=== PATIENT | male | born 1975 | race Caucasian/White ===

== ENCOUNTER 2017-06-17 13:59 | Emergency (ER) | payer MEDICARE ==
[2017-06-17] MEDS ORDERED: Sodium Chloride 0.9% 10 ML Syringe FLUSH PRN (14:37)
[2017-06-17] MEDS ORDERED: Sodium Chloride 0.9% 1,000 ML IV ONE (14:38)
[2017-06-17] MEDS ORDERED: Aspirin 81 MG Tab.Chew PO ONE (14:38)
[2017-06-17] MEDS ORDERED: LORazepam 2 MG/ML MDV IVPUSH ONE (14:39)
--- NOTE | 2017-06-17 14:42 | EDM.PDOC ---
ED HPI GENERAL MEDICAL PROBLEM - General Chief Complaint: Chest Pain Stated Complaint: CHEST PAIN Time Seen by Provider: 06/17/17 14:16 Source of Information: Reports: Patient History Limitations: Reports: No Limitations - History of Present Illness INITIAL COMMENTS - FREE TEXT/NARRATIVE: Patient is a 41-year-old male who presents to the ED complaining of heart racing off and on for the past 1-2 weeks. States Thursday evening while going to sleep his heart was pounding out of his chest. He states he was to the point where he almost called 911. He became short of breath with mild confusion. States he developed some mild chest discomfort during these episodes. 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 He states their has been more stress recently at work. [place] [facility] [place] has intentions of going home for 2 weeks tomorrow. normally works 1-2 months and then goes home for 5 weeks. He states that he stays in his truck most nights and surprisingly eats a okay diet. He does admit to chronic alcohol use. Most evenings drinks approximately half pint of whiskey and 12 x 12 ounce beers when he is off of work. [facility] he has been drinking pretty heavily for the past 4-5 days. [facility] he is a functional alcoholic and has not undergone treatment before. He has no history of DTs or seizures with detoxing. Currently the patient has no chest pain, palpitations, shortness of breath, nausea/vomiting, dizziness, pain radiating to his neck/ back/arms, no PND, no orthopnea, no claudication noted. He does have a past medical history of hypertension, hypercholesterolemia, and smoking pack and a half every day. In addition he has a family history 1st degree relative dadwith multiple MIs and strokes. Patient does not have any documented coronary disease. He is not a diabetic. 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 Gastrointestinal History: Reports: Other (See Below) Other Gastrointestinal History: acid reflux - Past Surgical History GI Surgical History: Reports: Appendectomy Social & Family History - Tobacco Use Smoking Status *Q: Current Every Day Smoker Years of Tobacco use: 22 Packs/Tins Daily: 1.5 - Caffeine Use Caffeine Use: Reports: Coffee, Energy Drinks - Recreational Drug Use Recreational Drug Use: No ED ROS GENERAL - Review of Systems Review Of Systems: See Below Constitutional: Denies: Fever, Decreased Appetite HEENT: Reports: No Symptoms Respiratory: Reports: Shortness of Breath, Cough (Chronic smoker's cough). Denies: Pleuritic Chest Pain, Sputum Cardiovascular: Reports: Dyspnea on Exertion, Palpitations. Denies: Chest Pain , Lightheadedness, Syncope GI/Abdominal: Reports: No Symptoms : Reports: No Symptoms Musculoskeletal: Reports: No Symptoms Skin: Reports: No Symptoms Neurological: Reports: Dizziness (At times). Denies: Confusion, Headache, Numbness, Tingling, Weakness Psychiatric: Reports: Anxiety, Cravings (Alcohol). Denies: Depression, Hallucinations, Homicidal Ideation, Suicidal Ideation ED EXAM, GENERAL - Physical Exam Exam: See Below Exam Limited By: No Limitations General Appearance: Alert, WD/WN, Anxious Eye Exam: Bilateral Eye: EOMI, PERRL Ears: Hearing Grossly Normal Nose: Normal Inspection Throat/Mouth: Normal Voice, No Airway Compromise Neck: Normal Inspection, Supple Respiratory/Chest: No Respiratory Distress, Lungs Clear, Normal Breath Sounds, No Accessory Muscle Use, Chest Non-Tender Cardiovascular: Normal Peripheral Pulses, Regular Rate, Rhythm, No Murmur Peripheral Pulses: 4+: Radial (L), Radial (R) GI/Abdominal: Normal Bowel Sounds, Soft, Non-Tender, No Organomegaly, No Distention Extremities: Normal Inspection, Non-Tender, No Pedal Edema Neurological: Alert, Oriented, CN II-XII Intact, Normal Cognition, No Motor/ Sensory Deficits Psychiatric: Normal Affect, Anxious Skin Exam: Warm, Dry, Intact, Normal Color, No Rash Course - Vital Signs Last Recorded V/S: Last Vital Signs Temp 97.5 F 06/17/17 14:09 Pulse 85 06/17/17 14:09 Resp 14 06/17/17 14:09 BP 172/106 H 06/17/17 14:09 Pulse Ox 97 06/17/17 14:09 - Orders/Labs/Meds Orders: Active Orders 24 hr Category Date Time Status EKG Documentation Completion [RC] ASDIRECTED Care 06/17/17 14:11 Active Holter Monitor 48 Hours [RC] .PRN Care 06/17/17 16:29 Inactive Peripheral IV Care [RC] . DIRECTED Care 06/17/17 14:37 Active Peripheral IV Insertion Adult [OM.PC] Stat Oth 06/17/17 14:37 Ordered EKG 12 Lead [EK] Stat Ther 06/17/17 14:11 Ordered Labs: Laboratory Tests 06/17/17 06/17/17 06/17/17 Range/Units 14:20 14:20 14:20 WBC 7.31 (4.23-9.07) K/mm3 RBC 5.54 (4.63-6.08) M/mm3 Hgb 17.2 (13.7-17.5) gm/L Hct 49.8 (40.1-51.0) % MCV 89.9 (79.0-92.2) fl MCH 31.0 (25.7-32.2) pg MCHC 34.5 (32.2-35.5) g/dl RDW Std Deviation 43.2 (35.1-43.9) fL Plt Count 274 (163-337) K/mm3 MPV 9.2 L (9.4-12.3) fl Neut % (Auto) 62.6 (34.0-67.9) % Lymph % (Auto) 21.3 L (21.8-53.1) % Glasscock % (Auto) 13.0 H (5.3-12.2) % Eos % (Auto) 1.9 (0.8-7.0) Baso % (Auto) 0.8 (0.1-1.2) % Neut # (Auto) 4.57 (1.78-5.38) K/mm3 Lymph # (Auto) 1.56 (1.32-3.57) K/mm3 Glasscock # (Auto) 0.95 H (0.30-0.82) K/mm3 Eos # (Auto) 0.14 (0.04-0.54) K/mm3 Baso # (Auto) 0.06 (0.01-0.08) K/mm3 PT 10.8 (8.0-13.0) SECONDS INR 0.99 APTT (22-36) SECONDS Sodium 138 (136-145) mEq/L Potassium 3.6 (3.5-5.1) mEq/L Chloride 103 (98-107) mEq/L Carbon Dioxide 27 (21-32) mEq/L Anion Gap 11.6 (5-15) BUN 10 (7-18) mg/dL Creatinine 0.9 (0.7-1.3) mg/dL Est Cr Clr Drug Dosing 112.65 mL/min Estimated GFR (MDRD) > 60 (>60) mL/min BUN/Creatinine Ratio 11.1 L (14-18) Glucose 106 (74-106) mg/dL Calcium 9.9 (8.5-10.1) mg/dL Magnesium 1.7 L (1.8-2.4) mg/dl Total Bilirubin 0.5 (0.2-1.0) mg/dL AST 36 (15-37) U/L ALT 46 (16-63) U/L Alkaline Phosphatase 80 (46-116) U/L Troponin I < 0.017 (0.00-0.056) ng/mL Total Protein 8.2 (6.4-8.2) g/dl Albumin 4.3 (3.4-5.0) g/dl Globulin 3.9 gm/dL Albumin/Globulin Ratio 1.1 (1-2) TSH 3rd Generation 2.561 (0.358-3.74) uIU/mL Urine Color (Yellow) Urine Appearance (Clear) Urine pH (5.0-8.0) Ur Specific Towner (1.005-1.030) Urine Protein (Negative) Urine Glucose (UA) (Negative) Urine Ketones (Negative) Urine Occult Blood (Negative) Urine Nitrite (Negative) Urine Bilirubin (Negative) Urine Urobilinogen (0.2-1.0) Ur Leukocyte Esterase (Negative) Urine RBC (0-5) /hpf Urine WBC (0-5) /hpf Ur Epithelial Cells (0-5) /hpf Urine Bacteria (FEW) /hpf Urine Mucus (FEW) /hpf Urine Opiates Screen (NEGATIVE) Ur Buprenorphine Scrn (NEGATIVE) Ur Oxycodone Screen (NEGATIVE) Urine Methadone Screen (NEGATIVE) Ur Propoxyphene Screen (NEGATIVE) Ur Barbiturates Screen (NEGATIVE) Ur Tricyclics Screen (NEGATIVE) Ur Phencyclidine Scrn (NEGATIVE) Ur Amphetamine Screen (NEGATIVE) U Methamphetamines Scrn (NEGATIVE) U Benzodiazepines Scrn (NEGATIVE) U Cocaine Metab Screen (NEGATIVE) U Marijuana (THC) Screen (NEGATIVE) Ethyl Alcohol 0.00 (0.00) gm% 06/17/17 06/17/17 06/17/17 Range/Units 14:20 15:10 15:10 WBC (4.23-9.07) K/mm3 RBC (4.63-6.08) M/mm3 Hgb (13.7-17.5) gm/L Hct (40.1-51.0) % MCV (79.0-92.2) fl MCH (25.7-32.2) pg MCHC (32.2-35.5) g/dl RDW Std Deviation (35.1-43.9) fL Plt Count (163-337) K/mm3 MPV (9.4-12.3) fl Neut % (Auto) (34.0-67.9) % Lymph % (Auto) (21.8-53.1) % Glasscock % (Auto) (5.3-12.2) % Eos % (Auto) (0.8-7.0) Baso % (Auto) (0.1-1.2) % Neut # (Auto) (1.78-5.38) K/mm3 Lymph # (Auto) (1.32-3.57) K/mm3 Glasscock # (Auto) (0.30-0.82) K/mm3 Eos # (Auto) (0.04-0.54) K/mm3 Baso # (Auto) (0.01-0.08) K/mm3 PT (8.0-13.0) SECONDS INR APTT 25 (22-36) SECONDS Sodium (136-145) mEq/L Potassium (3.5-5.1) mEq/L Chloride (98-107) mEq/L Carbon Dioxide (21-32) mEq/L Anion Gap (5-15) BUN (7-18) mg/dL Creatinine (0.7-1.3) mg/dL Est Cr Clr Drug Dosing mL/min Estimated GFR (MDRD) (>60) mL/min BUN/Creatinine Ratio (14-18) Glucose (74-106) mg/dL Calcium (8.5-10.1) mg/dL Magnesium (1.8-2.4) mg/dl Total Bilirubin (0.2-1.0) mg/dL AST (15-37) U/L ALT (16-63) U/L Alkaline Phosphatase (46-116) U/L Troponin I (0.00-0.056) ng/mL Total Protein (6.4-8.2) g/dl Albumin (3.4-5.0) g/dl Globulin gm/dL Albumin/Globulin Ratio (1-2) TSH 3rd Generation (0.358-3.74) uIU/mL Urine Color Yellow (Yellow) Urine Appearance Clear (Clear) Urine pH 8.5 H (5.0-8.0) Ur Specific Towner 1.020 (1.005-1.030) Urine Protein 2+ H (Negative) Urine Glucose (UA) Negative (Negative) Urine Ketones Negative (Negative) Urine Occult Blood Negative (Negative) Urine Nitrite Negative (Negative) Urine Bilirubin Negative (Negative) Urine Urobilinogen 1.0 (0.2-1.0) Ur Leukocyte Esterase Negative (Negative) Urine RBC 0-5 (0-5) /hpf Urine WBC 0-5 (0-5) /hpf Ur Epithelial Cells 0-5 (0-5) /hpf Urine Bacteria Not seen (FEW) /hpf Urine Mucus Not seen (FEW) /hpf Urine Opiates Screen Negative (NEGATIVE) Ur Buprenorphine Scrn Negative (NEGATIVE) Ur Oxycodone Screen Negative (NEGATIVE) Urine Methadone Screen Negative (NEGATIVE) Ur Propoxyphene Screen Negative (NEGATIVE) Ur Barbiturates Screen Negative (NEGATIVE) Ur Tricyclics Screen Negative (NEGATIVE) Ur Phencyclidine Scrn Negative (NEGATIVE) Ur Amphetamine Screen Negative (NEGATIVE) U Methamphetamines Scrn Negative (NEGATIVE) U Benzodiazepines Scrn Negative (NEGATIVE) U Cocaine Metab Screen Negative (NEGATIVE) U Marijuana (THC) Screen Presumptive positive H (NEGATIVE) Ethyl Alcohol (0.00) gm% 06/17/17 Range/Units 17:20 WBC (4.23-9.07) K/mm3 RBC (4.63-6.08) M/mm3 Hgb (13.7-17.5) gm/L Hct (40.1-51.0) % MCV (79.0-92.2) fl MCH (25.7-32.2) pg MCHC (32.2-35.5) g/dl RDW Std Deviation (35.1-43.9) fL Plt Count (163-337) K/mm3 MPV (9.4-12.3) fl Neut % (Auto) (34.0-67.9) % Lymph % (Auto) (21.8-53.1) % Glasscock % (Auto) (5.3-12.2) % Eos % (Auto) (0.8-7.0) Baso % (Auto) (0.1-1.2) % Neut # (Auto) (1.78-5.38) K/mm3 Lymph # (Auto) (1.32-3.57) K/mm3 Glasscock # (Auto) (0.30-0.82) K/mm3 Eos # (Auto) (0.04-0.54) K/mm3 Baso # (Auto) (0.01-0.08) K/mm3 PT (8.0-13.0) SECONDS INR APTT (22-36) SECONDS Sodium (136-145) mEq/L Potassium (3.5-5.1) mEq/L Chloride (98-107) mEq/L Carbon Dioxide (21-32) mEq/L Anion Gap (5-15) BUN (7-18) mg/dL Creatinine (0.7-1.3) mg/dL Est Cr Clr Drug Dosing mL/min Estimated GFR (MDRD) (>60) mL/min BUN/Creatinine Ratio (14-18) Glucose (74-106) mg/dL Calcium (8.5-10.1) mg/dL Magnesium (1.8-2.4) mg/dl Total Bilirubin (0.2-1.0) mg/dL AST (15-37) U/L ALT (16-63) U/L Alkaline Phosphatase (46-116) U/L Troponin I < 0.017 (0.00-0.056) ng/mL Total Protein (6.4-8.2) g/dl Albumin (3.4-5.0) g/dl Globulin gm/dL Albumin/Globulin Ratio (1-2) TSH 3rd Generation (0.358-3.74) uIU/mL Urine Color (Yellow) Urine Appearance (Clear) Urine pH (5.0-8.0) Ur Specific Towner (1.005-1.030) Urine Protein (Negative) Urine Glucose (UA) (Negative) Urine Ketones (Negative) Urine Occult Blood (Negative) Urine Nitrite (Negative) Urine Bilirubin (Negative) Urine Urobilinogen (0.2-1.0) Ur Leukocyte Esterase (Negative) Urine RBC (0-5) /hpf Urine WBC (0-5) /hpf Ur Epithelial Cells (0-5) /hpf Urine Bacteria (FEW) /hpf Urine Mucus (FEW) /hpf Urine Opiates Screen (NEGATIVE) Ur Buprenorphine Scrn (NEGATIVE) Ur Oxycodone Screen (NEGATIVE) Urine Methadone Screen (NEGATIVE) Ur Propoxyphene Screen (NEGATIVE) Ur Barbiturates Screen (NEGATIVE) Ur Tricyclics Screen (NEGATIVE) Ur Phencyclidine Scrn (NEGATIVE) Ur Amphetamine Screen (NEGATIVE) U Methamphetamines Scrn (NEGATIVE) U Benzodiazepines Scrn (NEGATIVE) U Cocaine Metab Screen (NEGATIVE) U Marijuana (THC) Screen (NEGATIVE) Ethyl Alcohol (0.00) gm% Meds: Medications Discontinued Medications Generic Name Dose Route Start Last Admin Trade Name Freq PRN Reason Stop Dose Admin Aspirin 324 mg 06/17/17 14:38 06/17/17 14:46 Aspirin PO 06/17/17 14:39 324 mg ONETIME ONE Administration Sodium Chloride 1,000 mls @ 999 mls/hr 06/17/17 14:38 06/17/17 14:45 Normal Saline IV 06/17/17 15:38 999 mls/hr ONETIME ONE Administration Magnesium Sulfate 2 gm/ Premix 50 mls @ 25 mls/hr 06/17/17 16:00 IV 06/17/17 17:59 ONETIME ONE Lorazepam 1 mg 06/17/17 14:39 06/17/17 14:46 Ativan IVPUSH 06/17/17 14:40 1 mg ONETIME ONE Administration Magnesium Oxide 400 mg 06/17/17 16:28 06/17/17 16:30 Magnesium Oxide PO 06/17/17 16:29 Not Given ONETIME ONE Magnesium Oxide 400 mg 06/17/17 16:28 06/17/17 16:47 Magnesium Oxide PO 06/17/17 16:29 400 mg ONETIME ONE Administration Sodium Chloride 10 ml 06/17/17 14:37 06/17/17 14:48 Saline Flush FLUSH 10 ml ASDIRECTED PRN Administration Keep Vein Open - Re-Assessments/Exams Free Text/Narrative Re-Assessment/Exam: IV established with normal saline and Ativan 1 mg IVP. Ordered aspirin 324 mg by mouth. Initial labs and studies include CBC, chem 14, urine drug tox, serum EtOH, magnesium, troponin, TSH, UA, chest x-ray one view, and coag studies. EKG revealed sinus rhythm with early repolarization pattern. No acute ST changes noted. CXR: reviewed with Dr. Ryan Epps. Nothing acute noted. Final interpretation is pending. Labs reviewed: CBC and chemistry panel was essentially normal. MG mildly low 1.7. Ordered 2 grams of mag IV. Troponin <0.017. TSH 2.561. LFT normal. INR 0.99. UA postive for protein 2+. Urine drug tox positive for marijuana. Serum ETOH negative. 2nd troponin ordered. If negative will discharge with holter monitor and contact information to obtain alcohol treatment. 06/17/17 16:29 due to patient's time constraint will change the magnesium from 2 g IV to 4 mg by mouth. 06/17/17 17:[address] holter monitor. Patient is leaving for two weeks back to [facility]. Patient will require followup with PCP at his hometown to have holter monitor study. Awaiting for the results of 2nd troponin. 1744 2nd troponin: Within normal limits. Will discharge patient home with instructions as documented. Departure - Departure Time of Disposition: 17:44 Disposition: Home, Self-Care 01 Condition: Good Clinical Impression: Heart palpitations, Alcohol abuse, Marijuana abuse Instructions: Alcohol Use Disorder, Cannabis Use Disorder, Palpitations, Easy- to-Read Referrals: PCP,None [Primary Care Provider] - Forms: ED Department Discharge, ED Return to Work/School Form Additional Instructions: As discussed suspect cause of palpitations is associated to the heavy alcohol use. Unable to obtain holter monitor study at this time since you are returning home for two weeks. Thus will have you follow up with PCP upon returning home to holter monitor study obtained, discuss treatment for anxiety/ depression/alcohol abuse, and smoking cessation. Magnesium was slightly low suggest taking a OTC daily multivitamin. No driving this evening since receiving a sedative medication. Refrain from alcohol use. Refrain from marijuana use. Return to the ED for any new or worsening symptoms. - My Orders Last 24 Hours: My Active Orders 06/17/17 14:11 EKG Documentation Completion [RC] ASDIRECTED EKG 12 Lead [EK] Stat 06/17/17 14:37 Peripheral IV Care [RC] . DIRECTED Peripheral IV Insertion Adult [OM.PC] Stat 06/17/17 16:29 Holter Monitor 48 Hours [RC] .PRN - Assessment/Plan Last 24 Hours: My Active Orders 06/17/17 14:11 EKG Documentation Completion [RC] ASDIRECTED EKG 12 Lead [EK] Stat 06/17/17 14:37 Peripheral IV Care [RC] . DIRECTED Peripheral IV Insertion Adult [OM.PC] Stat 06/17/17 16:29 Holter Monitor 48 Hours [RC] .PRN
[2017-06-17] MEDS ORDERED: Magnesium Sulfate/Water 2 GM in Premix Bag 1 BAG IV ONE (16:00)
[2017-06-17] MEDS ORDERED: Magnesium Oxide 400 MG Tab PO ONE ×2 (16:28)
--- NOTE | 2017-06-17 17:32 | CR ---
Chest: Portable view of the chest was obtained. Comparison: No prior study. Heart size and mediastinum are normal. Lungs are clear. Bony structures are grossly intact. Impression: 1. Nothing acute is identified on portable chest x-ray. Diagnostic code #1
== END 2017-06-17 18:05 | disposition home or self-care (01) ==
LOC: JD.ED 13:59
DX: R00.2 Palpitations (principal); F10.10 Alcohol abuse, uncomplicated; F12.10 Cannabis abuse, uncomplicated; I10 Essential (primary) hypertension; E78.00 Pure hypercholesterolemia, unspecified; F17.210 Nicotine dependence, cigarettes, uncomplicated; Z88.0 Allergy status to penicillin; Z79.899 Other long term (current) drug therapy
CPT/HCPCS: 36415; 71010; 80053; 80306; 81001; 83735; 84443; 84484; 85025; 85610; 85730; 93005; 96361; 96374; 99285; A9270; G0480; J2060; J7040; J7050; 93010; 99284